=== PATIENT | female | born 1975 | race Caucasian/White ===

== ENCOUNTER → 2017-08-19 | Outpatient (REF) | payer BC ==
[2017-08-21 14:14] LABS: HPV HYBRID CAPTURE II Negative (Negative)
== END ==
LOC: M SFHCWAGY 15:44
DX: Z12.4 Encounter for screening for malignant neoplasm of cervix (principal)
CPT/HCPCS: G0123

== ENCOUNTER → 2021-02-23 | Outpatient (CLI) | payer BC ==
[~2021-02-23] MED LIST: BENA25CA2 PO; CLON1TAB8 PO; CYCL-707 PO; DRIS50003 PO; ENAL-36 PO; IBUP200C25 PO; PERCOCET PO; PRED-351 PO; ZOFR4TAB16 PO
--- NOTE | 2021-02-28 14:39 | REP ---
INDICATION: EPISTAXIC, STANLEY SINUSITIS. COMPARISON: 08/09/2011 TECHNIQUE: 2 mm axial images were obtained through the facial bones. FINDINGS: All of the paranasal sinuses are currently clear. No fracture of facial bones is identified. No enlargement of the meati are noted. IMPRESSION: Unremarkable unenhanced CT of the facial bones. <Electronically signed by Da Granado > 02/28/21 [id number]
== END ==
LOC: M PLAIMG 14:40
PROVIDERS: ATTEND Otolaryngology
DX: R04.0 Epistaxis (principal); J32.4 Chronic pansinusitis

== ENCOUNTER → 2021-03-14 | Outpatient (REF) | payer BC | LOC: M PLALAB 14:56 | PROVIDERS: ATTEND Nurse Practitioner Women's Health | DX: Z11.3 Encounter for screening for infections with a predominantly sexual mode of transmission (principal) ==

== ENCOUNTER → 2021-03-14 | Outpatient (REF) | payer BC | LOC: M SFHCWAGY 17:30 | PROVIDERS: ATTEND Nurse Practitioner Women's Health | DX: Z12.4 Encounter for screening for malignant neoplasm of cervix (principal) ==